=== PATIENT | female | born 1990 | race Caucasian/White ===

== ENCOUNTER 2020-01-18 13:28 | Emergency (ER) | payer BC ==
[~2020-01-18] VITALS: Ht 175.3 cm; Wt 127.0 kg
--- OUTSIDE RECORDS SUMMARY | ~2020-01-18 | XMS | Encounter Summary ---
Demographics + + + | Address | [address] | | | [place] [address] | + + + | Home Phone | | + + + | Preferred Language | Unknown | + + + | Marital Status | | + + + | Sabianism Affiliation | Unknown | + + + | Race | White | + + + | Ethnic Group | Not or | + + + Author + + + | Author | [facility] | + + + | Organization | [facility] | + + + | Address | Unknown | + + + | Phone | Unavailable | + + + Support + + +---------+ + | Name | Relationship | Address | Phone | + + +---------+ + | Valentin Lu | ECON | Unknown | | + + +---------+ + Care Team Providers + +------+ + | Care Ice Cream Freezer Helper Name | Role | Phone | + +------+ + | Nanda Schaeffer | PCP | | + +------+ + Reason for Visit + +--------+ + | Reason | Onset | Comments | | | Date | | + +--------+ + | Care Coordination | 01/07/ | | | | 2019 | | + +--------+ + Encounter Details +--------+ + + + + | Date | Type | Department | Care Team | Description | +--------+ + + + + | 01/07/ | Telephone | [facility] | Shruti Wheeler, | Care Coordination | | 2019 | | [facility] | [address] [facility] | | | | | [address] | [facility] | | | | | [address] | [place], [place] | | | | | Pavilion, [facility] floor | [address] | | | | | [place], [place] | [phone] | | | | | [address] | | | | | | [phone] | | | +--------+ + + + + Social History + +-------+ +--------+------+ | Tobacco Use | Types | Packs/Day | Years | Date | | | | | Used | | + +-------+ +--------+------+ | Never Smoker | | | | | + +-------+ +--------+------+ + +---+---+---+ | Smokeless Tobacco: | | | | | Never Used | | | | + +---+---+---+ + + +---------+ + | Alcohol Use | Drinks/Week | oz/Week | Comments | + + +---------+ + | Yes | | | 2/monthly | + + +---------+ + + + + | Sex Assigned at | Date Recorded | | | | + + + | Not on file | | + + + documented as of this encounter Miscellaneous Notes Telephone Encounter - Shruti Wheeler MD - 01/07/2019 2:18 PM PDTI already did that.. no further recommendations needed. Thanks! Shruti Wheeler MD elephone Encounter - Becky Raya RN - 01/07/2019 2:[address] Wheeler elephone Encounter - Jong Bray - 2018 1:43 PM PDTTC rec'd from [facility] at [facility] re: Dr. Wheeler's note in the Consult to [place] stati hoa, "Special Concerns for [facility] provider: Addisons disease, need steroid recommendations." Ra coughlin states that [facility] providers are not able to give these recommendations and that [facility] clini maddy staff will need to reach out to the pt's endocrinology provider for steroid dosing. Routing to Coffee Shop Attendant Triage pool. 19 1:46 PM PDTdocumented in this encounter Plan of Treatment +--------+ + + + + | Date | Type | Specialty | Care Team | Description | +--------+ + + + + | 01/15/ | Procedure | Surgery | | | | 2020 | Pass | | | | +--------+ + + + + documented as of this encounter Visit Diagnoses Not on filedocumented in this encounter
--- OUTSIDE RECORDS SUMMARY | ~2020-01-18 | XMS | Encounter Summary ---
Demographics + + + | Address | [address] | | | [place] [address] | + + + | Home Phone | | + + + | Preferred Language | Unknown | + + + | Marital Status | | + + + | Yarsanism Affiliation | Unknown | + + + | Race | White | + + + | Ethnic Group | Not or | + + + Author + + + | Author | [facility] | + + + | Organization | [facility] | + + + | Address | Unknown | + + + | Phone | Unavailable | + + + Support + + +---------+ + | Name | Relationship | Address | Phone | + + +---------+ + | Valentin Lu | ECON | Unknown | | + + +---------+ + Care Team Providers + +------+ + | Care Civil Transportation Engineer Name | Role | Phone | + +------+ + | Nanda Schaeffer | PCP | | + +------+ + Reason for Visit + +--------+ + | Reason | Onset | Comments | | | Date | | + +--------+ + | Need To Cancel | 01/09/ | Cancel surgery | | Appointment | 2019 | | + +--------+ + Encounter Details +--------+ + + + + | Date | Type | Department | Care Team | Description | +--------+ + + + + | 01/09/ | Telephone | [facility] | Shruti Wheeler, | Need To Cancel | | 2019 | | [facility] | [address] | Appointment (Cancel | | | | [address] | [facility] [address] | surgery) | | | | [address] | [place], [place] | | | | | Pavilion, 7th floor | [address] | | | | | [place], [place] | [phone] | | | | | [address] | | | | | | [phone] | | | +--------+ + + + [...] this encounter Miscellaneous Notes Telephone Encounter - Laura Roberson RN - 01/09/2019 3:23 PM PDTPhone call to patient. Relayed Dr. Wheeler's message. Patient verbalizes understanding and has not further questions . RN closing. eleph one Encounter - Shruti Wheeler MD - 01/09/2019 2:50 PM PDTPlease tell her I'm sorry to he ar about her job. I hope she is able to find another one. No worries about cancelling her rios rgery, just have her call when/if she is ready to reschedule. Shruti Wheeler MD elephone Encounter - Jong Bray - 01/09/2019 9:35 AM PDT01/15 surgery cancelled as pt requested. Routing to Dr. Wheeler as FYI. 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 She does not know what is going to happen and would li ke to cancel her procedure. She will call back to reschedule once she knows what's going on. documented in this encounter Plan of Treatment +--------+ + + + + | Date | Type | Specialty | Care Team | Description | +--------+ + + + + | 01/15/ | Procedure | Surgery | | | | 2020 | Pass | | | | +--------+ + + + + documented as of this encounter Visit Diagnoses Not on filedocumented in this encounter"
--- OUTSIDE RECORDS SUMMARY | ~2020-01-18 | XMS | Encounter Summary ---
Demographics + + + | Address | [address] | | | [place] [address] | + + + | Home Phone | | + + + | Preferred Language | Unknown | + + + | Marital Status | | + + + | Taoism Affiliation | Unknown | + + + | Race | White | + + + | Ethnic Group | Not or | + + + Author + + + | Organization | Unknown | + + + | Address | Unknown | + + + | Phone | Unavailable | + + + Support + + +---------+ + | Name | Relationship | Address | Phone | + + +---------+ + | Valentin Lu | OZZY | Unknown | | + + +---------+ + Care Team Providers + +------+ + | Care News Cameraman Name | Role | Phone | + +------+ + | Nanda Schaeffer | PCP | | + +------+ + Encounter Details +--------+--------+ + + + | Date | Type | Department | Care Team | Description | +--------+--------+ + + + | // | Travel | | | | | 2019 | | | | | +--------+--------+ + + + Social History + +-------+ [...] + + documented as of this encounter Plan of Treatment +--------+ + [...]
--- OUTSIDE RECORDS SUMMARY | ~2020-01-18 | XMS | Clinical Summary ---
Demographics + + + | Address | [address] | | | [place] [address] | + + + | Home Phone | | + + + | Preferred Language | Unknown | + + + | Marital Status | | + + + | Zoroastrian Affiliation | Unknown | + + + | Race | White | + + + | Ethnic Group | Not or | + + + Author + + + | Author | [facility] | + + + | Organization | [facility] | + + + | Address | Unknown | + + + | Phone | Unavailable | + + + Support + + +---------+ + | Name | Relationship | Address | Phone | + + +---------+ + | Valentin Lu | ECON | Unknown | | + + +---------+ + Care Team Providers + +------+ + | Care Final Assembly Worker Name | Role | Phone | + +------+ + | Nanda Schaeffer | PCP | | + +------+ + Source Comments SANGITA is fully live on both [facility] and [facility] InPatient.[facility] Allergies + + + + + + | Active Allergy | Reactions | Severity | Noted | Comments | | | | | Date | | + + + + + + | Azithromycin | Nausea and Vomiting | Low | 10/16/19 | Sensitiy | | | | | 19 | | + + + + + + | Codeine | Rash | Medium | 10/16/19 | Hives | | | | | 19 | | + + + + + + Medications + + + +---------+------+------+-------+ | Medication | Sig | Dispensed | Refills | Star | End | Statu | | | | | | t | Date | s | | | | | | Date | | | + + + +---------+------+------+-------+ | levothyroxine | Take 200 mg by mouth | | 0 | | | Activ | | sodium | once daily. | | | | | e | | (LEVOTHYROXINE ORAL) | | | | | | | + + + +---------+------+------+-------+ | VIENVA 0.1-20 | Take by mouth once | | 12 | 06/0 | | Activ | | mg-mcg oral tablet | daily. | | | 20 | | e | | | | | | 19 | | | + + + +---------+------+------+-------+ | naproxen 375 mg | Take 375 mg by mouth | | 0 | | | Activ | | oral tablet | as needed. | | | | | e | + + + +---------+------+------+-------+ | acetaminophen | Take by mouth as | | 0 | | | Activ | | (TYLENOL ORAL) | needed. | | | | | e | + + + +---------+------+------+-------+ | | Place under tongue. | | 0 | 06/0 | | Activ | | buprenorphine-naloxo | | | | 6/20 | | e | | ne 8-2 mg sublingual | | | | 19 | | | | tablet, sublingual | | | | | | | + + + +---------+------+------+-------+ | cetirizine 10 mg | Take 10 mg by mouth | | 0 | | | Activ | | oral tablet | once daily. | | | | | e | + + + +---------+------+------+-------+ | baclofen 10 mg | Take 10 mg by mouth | | 0 | | | Activ | | oral tablet | three times daily. | | | | | e | + + + +---------+------+------+-------+ | diazePAM 5 mg oral | Take 5 mg by mouth | | 0 | | | Activ | | tablet | once daily. | | | | | e | + + + +---------+------+------+-------+ | ALBUTEROL INHL | Inhale once daily. | | 0 | | | Activ | | | | | | | | e | + + + +---------+------+------+-------+ | FLUoxetine 10 mg | Take 10 mg by mouth | | 0 | | | Activ | | oral capsule | once daily. | | | | | e | + + + +---------+------+------+-------+ | prazosin 1 mg oral | Take 1 mg by mouth | | 0 | | | Activ | | capsule | once daily. | | | | | e | + + + +---------+------+------+-------+ | fluticasone | Instill 2 sprays | | 0 | | | Activ | | propionate 50 | into each nostril as | | | | | e | | mcg/actuation nasal | needed for allergy | | | | | | | spray,suspension | symptoms. | | | | | | + + + +---------+------+------+-------+ | | Apply to affected | | 0 | | | Activ | | clotrimazole-betamet | area as needed. | | | | | e | | hasone 1-0.05 % | Apply to affected | | | | | | | topical cream | area. | | | | | | + + + +---------+------+------+-------+ | ondansetron 4 mg | Take 4 mg by mouth | | 0 | | | Activ | | oral tablet | every twelve hours | | | | | e | | | as needed. | | | | | | + + + +---------+------+------+-------+ | lidocaine 5 % | Apply 1 patch to | | 0 | | | Activ | | topical adhesive | skin once daily. | | | | | e | | patch,medicated | Apply patch to most | | | | | | | | painful area; Patch | | | | | | | | may remain in place | | | | | | | | for up to 12 hours | | | | | | | | in any 24-hour | | | | | | | | period. | | | | | | + + + +---------+------+------+-------+ | hydrocortisone 5 | Take 5 mg by mouth | | 0 | | | Activ | | mg oral tablet | once daily. | | | | | e | + + + +---------+------+------+-------+ | lidocaine 4 % (40 | Apply with cotton | 50 mL | 3 | 08/2 | | Activ | | mg/mL) mucous | ball to the vaginal | | | 9/20 | | e | | membrane solution | opening 3-5 minutes | | | 19 | | | | | prior to intercourse | | | | | | + + + +---------+------+------+-------+ | norethindrone 5 mg | 1 tablet daily for | 50 | 2 | 09/0 | | Activ | | oral tablet | 14 days; if still | tablet | | 4/20 | | e | | | having pain, | | | 19 | | | | | increase at | | | | | | | | increments of 2.5 | | | | | | | | mg/day every 2 weeks | | | | | | | | to reach a maximum | | | | | | | | dose of 15 mg/day | | | | | | + + + +---------+------+------+-------+ Active Problems Not on file Family History + + +------+ + | Medical History | Relation | Name | Comments | + + +------+ + | Colon Cancer | Maternal | | | | | Grandfath | | | | | er | | | + + +------+ + | Breast Cancer | Maternal | | | | | Grandmoth | | | | | er | | | + + +------+ + | Thyroid cancer | Mother | | | + + +------+ + | Cancer | Sister | | parathyroid ca | + + +------+ + | Endometriosis | Sister | | | + + +------+ + | Endometriosis | Sister | | | + + +------+ + + +------+--------+ + | Relation | Name | Status | Comments | + +------+--------+ + | Maternal Grandfather | | | | + +------+--------+ + | Maternal Grandmother | | | | + +------+--------+ + | Mother | | | | + +------+--------+ + | Sister | | | | + +------+--------+ + | Sister | | | | + +------+--------+ + | Sister | | | | + +------+--------+ + Social History + +-------+ +--------+------+ | [...] on file | | + + + Last Filed Vital Signs + + + + + | Vital Sign | Reading | Time Taken | Comments | + + + + + | Blood Pressure | 130/80 | 11/21/2018 1:09 PM | | | | | PDT | | + + + + + | Pulse | 89 | 11/21/2018 1:09 PM | | | | | PDT | | + + + + + | Temperature | - | - | | + + + + + | Respiratory Rate | - | - | | + + + + + | Oxygen Saturation | 98% | 11/21/2018 1:09 PM | | | | | PDT | | + + + + + | Inhaled Oxygen | - | - | | | Concentration | | | | + + + + + | Weight | 144.1 kg (317 lb 9.6 | 11/21/2018 1:09 PM | | | | oz) | PDT | | + + + + + | Height | 175.3 cm (5' 9") | 11/21/2018 1:09 PM | | | | | PDT | | + + + + + | Body Mass Index | 46.9 | 11/21/2018 1:09 PM | | | | | PDT | | + + + + + Plan of Treatment +--------+ + + + + | Date | Type | Specialty | Care Team | Description | +--------+ + + + + | 01/15/ | Procedure | Surgery | | | | 2020 | Pass | | | | +--------+ + + + + + + + + + | Health Maintenance | Due Date | Last | Comments | | | | Done | | + + + + + | Influenza (Flu) | | 11/13/19 | | | vaccination (#1) | 0 | 19, | | | | | 11/27/19 | | | | | 18, | | | | | 11/04/19 | | | | | 17, | | | | | Addition | | | | | al | | | | | history | | | | | exists | | + + + + + | Pneumococcal | Aged Out | | No longer eligible based on patient's age | | vaccination | | | to complete this topic | + + + + + Results Not on filefrom Last 3 Months Insurance + +--------+ +--------+ + +------+ | Payer | Benefi | Subscriber | Effect | Phone | Address | Type | | | t Plan | ID | daniel | | | | | | / | | Dates | | | | | | Group | | | | | | + +--------+ +--------+ + +------+ | [employer] [place] | BCBS | [id number] | 03/26/19 | [phone] | [address] | PPO | | | [place] | 5 | 18-Pre | 4 | [place] | | | | IS | | sent | | [place], [place] | | | | | | | | [id number] | | + +--------+ +--------+ + +------+ | [place] | BLUE | [id number] | | [phone] | [address] | PPO | | | CROSS | | [address] | [id number] | | | | [place] | | esent | | [place], | | | | L | | | | [place] [address] | | + +--------+ +--------+ + +------+ + +--------+ +--------+ + + | Guarantor Name | Accoun | Relation to | Date | Phone | Billing Address | | | t Type | Patient | of | | | | | | | | | | + +--------+ +--------+ + + | Kalie Lu | Person | Self [birth year] | [address] | | | al/Fam | | 1990 | [phone] | [place] [address] | | | delores | | | 8 (Home) | | + +--------+ +--------+ + +
--- OUTSIDE RECORDS SUMMARY | ~2020-01-18 | XMS | Encounter Summary ---
Demographics + + + | Address | [address] | | | [place] [address] | + + + | Home Phone | | + + + | Preferred Language | Unknown | + + + | Marital Status | | + + + | Pentecostal Affiliation | Unknown | + + + | Race | White | + + + | Ethnic Group | Not or | + + + Author + + + | Author | [facility] | + + + | Organization | [facility] | + + + | Address | Unknown | + + + | Phone | Unavailable | + + + Support + + +---------+ + | Name | Relationship | Address | Phone | + + +---------+ + | Valentin Lu | ECON | Unknown | | + + +---------+ + Care Team Providers + +------+ + | Care Sponge Hooker Name | Role | Phone | + +------+ + | Nanda Schaeffer | PCP | | + +------+ + Encounter Details +--------+ + + + + | Date | Type | Department | Care Team | Description | +--------+ + + + + | 06/19/ | Outside | UNKNOWN DEPARTMENT | Other, Faculty | | | 2019 | Records | [address] [facility] | [phone] | | | | | [address] | | | | | | [place], [place] | | | | | | [address] | | | +--------+ + + + + Social History + +-------+ +--------+------+ | Tobacco Use | Types | Packs/Day | Years | Date | | | | | Used | | + +-------+ +--------+------+ | Never Assessed | | | | | + +-------+ +--------+------+ + + + | Sex Assigned at [...] + + documented as of this encounter Procedures + +--------+ + + + | Procedure Name | Priori | Date/Time | Associated Diagnosis | Comments | | | ty | | | | + +--------+ + + + | OUTSIDE RADIOLOGY - | | 06/19/2018 | | Results for this | | ULTRASOUND | | 12:00 AM | | procedure are in the | | | | PDT | | results section. | + +--------+ + + + documented in this encounter Results OUTSIDE RADIOLOGY - ULTRASOUND (06/19/2018 12:00 AM PDT) + + + | Narrative | Performed At | + + + | | | + + + documented in this encounter Visit Diagnoses Not on filedocumented in this encounter"
--- OUTSIDE RECORDS SUMMARY | ~2020-01-18 | XMS | Encounter Summary ---
Demographics + + + | Address | [address] | | | [place] [address] | + + + | Home Phone | | + + + | Preferred Language | Unknown | + + + | Marital Status | | + + + | Samaritan Affiliation | Unknown | + + + | Race | White | + + + | Ethnic Group | Not or | + + + Author + + + | Author | [facility] | + + + | Organization | [facility] | + + + | Address | Unknown | + + + | Phone | Unavailable | + + + Support + + +---------+ + | Name | Relationship | Address | Phone | + + +---------+ + | Valentin Lu | ECON | Unknown | | + + +---------+ + Care Team Providers + +------+ + | Care Occupational Therapist Name | Role | Phone | + +------+ + | Nanda Schaeffer | PCP | | + +------+ + Reason for Visit + +--------+ + | Reason | Onset | Comments | | | Date | | + +--------+ + | housing accomodation | 12/23/ | | | | 2018 | | + +--------+ + Encounter Details +--------+ + + + + | Date | Type | Department | Care Team | Description | +--------+ + + + + | 12/23/ | Telephone | SOCIAL WORK | Kailee Hagen | housing accomodation | | 2019 | | AMBULATORY [address] | | | | | [address] | [place], | | | | | Mailcode: CH6A | [place] [address] | | | | | [place], [place] | | | | | | [address] | | | | | | [phone] | | | +--------+ + + + [...] this encounter Miscellaneous Notes Telephone Encounter - Kailee Hagen - 12/26/2018 1:36 PM PDTCalled and spoke with patient. Patient declined a screening at this time as she is not sure if she will have to reschedule the surgery to a later date. Patient states she will call this off once she is ready to com plete an RPV screening. elep jose Encounter - Kailee Hagen - 12/23/2018 4:50 PM PDTCalled and left a voicemail message to patient introducing myself and requesting a return call to complete an RPV guest house lo dging for 01/14-01/15/2019. Patient will not be able to discharge to [facility] after the day proce dure. Kailee Hagen, Supervisor Of Communications [phone] [employer] Drafter pager [phone] documented in this encounte r Plan of Treatment +--------+ + + + [...]
--- OUTSIDE RECORDS SUMMARY | ~2020-01-18 | XMS | Encounter Summary ---
Demographics + + + | Address | [address] | | | [place] [address] | + + + | Home Phone | | + + + | Preferred Language | Unknown | + + + | Marital Status | | + + + | Adventism Affiliation | Unknown | + + + | Race | White | + + + | Ethnic Group | Not or | + + + Author + + + | Author | [facility] | + + + | Organization | [facility] | + + + | Address | Unknown | + + + | Phone | Unavailable | + + + Support + + +---------+ + | Name | Relationship | Address | Phone | + + +---------+ + | Valentin Lu | ECON | Unknown | | + + +---------+ + Care Team Providers + +------+ + | Care Ip Network Architect Name | Role | Phone | + +------+ + | Nanda Schaeffer | PCP | | + +------+ + Encounter Details +--------+ + + + + | Date | Type | Department | Care Team | Description | +--------+ + + + + | 08/28/ | Outside | UNKNOWN DEPARTMENT | Other, Faculty | | | 2019 | Records | [address] [facility] | [phone] | | | | | [address] | | | | | | [place], [place] | | | | | | [address] | | | +--------+ + + + [...] + +--------+ + + + | OUTSIDE LAB - | | 08/28/2018 | | Results for this | | PATHOLOGY | | 12:00 AM | | procedure are in the | | | | PDT | | results section. | + +--------+ + + + | OUTSIDE LAB - | | 08/28/2018 | | Results for this | | PATHOLOGY | | 12:00 AM | | procedure are in the | | | | PDT | | results section. | + +--------+ + + + documented in this encounter Results OUTSIDE LAB - PATHOLOGY (08/28/2018 12:00 AM PDT) + + + | Narrative | Performed At | + + + | | | + + + OUTSIDE LAB - PATHOLOGY (08/28/2018 12:00 AM PDT) + + + | Narrative | Performed At | + + + | | | + + + documented in this encounter Visit Diagnoses Not on filedocumented in this encounter"
--- OUTSIDE RECORDS SUMMARY | ~2020-01-18 | XMS | Encounter Summary ---
Demographics + + + | Address | [address] | | | [place] [address] | + + + | Home Phone | | + + + | Preferred Language | Unknown | + + + | Marital Status | | + + + | Yazidism Affiliation | Unknown | + + + | Race | White | + + + | Ethnic Group | Not or | + + + Author + + + | Author | [facility] | + + + | Organization | [facility] | + + + | Address | Unknown | + + + | Phone | Unavailable | + + + Support + + +---------+ + | Name | Relationship | Address | Phone | + + +---------+ + | Vlaentin Lu | ECON | Unknown | | + + +---------+ + Care Team Providers + +------+ + | Care Water Treatment Plant Engineer Name | Role | Phone | + +------+ + | Nanda Schaeffer | PCP | | + +------+ + Reason for Visit + +--------+ + | Reason | Onset | Comments | | | Date | | + +--------+ + | Questions About | 12/17/ | | | Surgery | 2019 | | + +--------+ + Encounter Details +--------+ + + + + | Date | Type | Department | Care Team | Description | +--------+ + + + + | 12/17/ | Telephone | [facility] | Shruti Wheeler, | Questions About | | 2019 | | [facility] | [address] | Surgery | | | | Pav[address] | [facility] | | | | | [address] | [place], [place] | | | | | Pavilion, 7th floor | [address] | | | | | [place], [place] | [phone] | | | | | [address] | | | | | | [phone] | | | +--------+ + + + [...] this encounter Miscellaneous Notes Telephone Encounter - Gisselle Uriarte RN - 12/17/2018 11:05 AM PDTTC to Kalie Informed her that recovery would typically take 1-2 weeks. Pt will send over paperwork to reflect time needed off of work. 11: 06 AM PDTTelephone Encounter - Barbie Evans - 12/17/2018 10:53 AM PDTTC from patient isabella victoria to find out how long the expected recovery for surgery is so that she can let her work know how much time she will need off. Patient requests a call back at: [phone].Electronically signed by Barbie Evans at 11/25 10:55 AM PDTdocumented in this encounter Plan of Treatment [...]
--- OUTSIDE RECORDS SUMMARY | ~2020-01-18 | XMS | Encounter Summary ---
Demographics + + + | Address | [address] | | | [place] [address] | + + + | Home Phone | | + + + | Preferred Language | Unknown | + + + | Marital Status | | + + + | Yazdanism Affiliation | Unknown | + + + | Race | White | + + + | Ethnic Group | Not or | + + + Author + + + | Author | [facility] | + + + | Organization | [facility] | + + + | Address | Unknown | + + + | Phone | Unavailable | + + + Support + + +---------+ + | Name | Relationship | Address | Phone | + + +---------+ + | Valentin Lu | ECON | Unknown | | + + +---------+ + Care Team Providers + +------+ + | Care Personal Injury Specialist Name | Role | Phone | + +------+ + | Nanda Schaeffer | PCP | | + +------+ + Encounter Details +--------+ + + + + | Date | Type | Department | Care Team | Description | +--------+ + + + + | 06/14/ | Outside | UNKNOWN DEPARTMENT | Other, Faculty | | | 2016 | Records | [address] [facility] | [phone] | | | | | [address] | | | | | | [place], [place] | | | | | | [address] | | | +--------+ + + + [...] + | OUTSIDE LAB - | | 06/15/2015 | | Results for this | | PATHOLOGY | | 12:00 AM | | procedure are in the | | | | PDT | | results section. | + +--------+ + + + documented in this encounter Results OUTSIDE LAB - PATHOLOGY (06/15/2015 12:00 AM PDT) + + + | Narrative | Performed At | + + + | | | + + + documented in this encounter Visit Diagnoses Not on filedocumented in this encounter"
--- OUTSIDE RECORDS SUMMARY | ~2020-01-18 | XMS | Encounter Summary ---
Demographics + + + | Address | [address] | | | [place] [address] | + + + | Home Phone | | + + + | Preferred Language | Unknown | + + + | Marital Status | | + + + | Druze Affiliation | Unknown | + + + [...] Team Providers + +------+ + | Care Assistant Foreman Name | Role | Phone | + +------+ + | Nanda Schaeffer | PCP | | + +------+ + Reason for Referral Physical Therapy (Routine) +--------+--------+ + + + + | Status | Reason | Specialty | Diagnoses / | Referred By | Referred To | | | | | Procedures | Contact | Contact | +--------+--------+ + + + + | Closed | | Physical | Diagnoses | Summer, | | | | | Therapy | Pelvic pain | Shruti Underwood MD | | | | | | Procedures | [address] | | | | | | PHYSICAL | [address] | | | | | | THERAPY | [address] | | | | | | REFERRAL | [place], [place] | | | | | | | [address] | | | | | | | Phone: | | | | | | | [phone] | | | | | | | Fax: | | | | | | | [phone] | | +--------+--------+ + + + + Rehabilitation Therapy (Routine) +--------+--------+ + + + + | Status | Reason | Specialty | Diagnoses / | Referred By | Referred To | | | | | Procedures | Contact | Contact | +--------+--------+ + + + + | Closed | | March | Diagnoses | Summer, | May | | | | Wellness | Pelvic pain | Shruti Underwood MD | Wellness | | | | | Procedures | [address] | [address] | | | | | CONSULT TO | [address] | [address] | | | | | [address] | [address] | [place], [place] | | | | | EXERCISE | [place], [place] | [address] | | | | | PROGRAM | [address] | Phone: | | | | | | Phone: | [phone] | | | | | | [phone] | | | | | | | Fax: | | | | | | | [phone] | | +--------+--------+ + + + + Reason for Visit + + + | Reason | Comments | + + + | New Patient Visit | | + + + Intake Referral (Routine) +--------+--------+ + + + + | Status | Reason | Specialty | Diagnoses / | Referred By | Referred To | | | | | Procedures | Contact | Contact | +--------+--------+ + + + + | Closed | | Obstetrics & | Diagnoses | [facility] | Kimberly | | | | Gynecology | | Roman Castro, | Generalists | | | | | Endometriosi | MD ST | [address] | | | | | s, | MACI[facility] | [facility] | | | | | unspecified | H[facility]ITAL | [place] | | | | | | OBSTETRICS | [address] | | | | | Endometriosi | AND | floor | | | | | s of pelvic | GYNECOLOGY | [place], [place] | | | | | peritoneum | [place], | [address] | | | | | Endometriosi | [place] [address] | Phone: | | | | | s of ovary | Phone: | [phone] | | | | | Procedures | [phone] | Fax: | | | | | ME NEW | Fax: | [phone] | | | | | PATIENT | [phone] | | | | | | LEVEL V ME | | | | | | | EST PATIENT | | | | | | | LEVEL V | | | +--------+--------+ + + + + Encounter Details +--------+---------+ + + + | Date | Type | Department | Care Team | Description | +--------+---------+ + + + | 11/21/ | Office | [facility] | Shruti Wheeler, | Pelvic pain (Primary | | 2019 | Visit | [facility] | [address] | Dx); Dyspareunia | | | | [address] | [address] | due to medical | | | | [address] | [place], [place] | condition in female | | | | Pavilion, 7th floor | [address] | | | | | [place], [place] | [phone] | | | | | [address] | | | | | | [phone] | | | +--------+---------+ + + + Social History + +-------+ [...] + + documented as of this encounter Last Filed Vital Signs + + + [...] | | + + + + + documented in this encounter Patient Instructions Patient Instructions Shruti Wheeler MD - 11/21/2018 1:00 PM PDTIt was nice to meet you t davian! I'm sorry you've been having pain but hopefully we can get it better with the things w e talked about at today's visit! -Use heat and ice for 20 minutes at a time, alternating several times each evening -Use ibuprofen 600mg (3 over the counter tablets) 3-4 times per day - Schedule massage therapy (look for someone in your area that does Rolfing, myofascial rel ease or Mayan abdominal wall massage) - Schedule pelvic floor physical therapy - Use the lidocaine with a cotton ball prior to intercourse documented in this encounter Progress Notes Shruti Wheeler MD - 11/21/2018 1:00 PM PDTOutside op note received, reviewed: DOS: 10/21/17 Surgeon: Roman Acuna MD ([facility]) Procedure: Dx l/s Findings: Normal uterine size and shape. Anterior cul-de-sac with several small endometrial implants on the right. No adhesions. Posterior cul-de-sac with several peritoneal implants bilaterally. Just above the right uterosacral ligament, there was a fairly large Ke Maste rs defect with probable deep endometriosis. Bilateral pelvic sidewalls had endometrial impla nts underneath the ovaries. Left tube normal. Left ovary with two red endometrial implants b ut no obvious cysts or endometriomas. The right tube was normal. The right ovary showed no e vidence of endometriosis or cysts. Normal appendix. Rest of pelvis normal. Due to the extensive nature of involved peritoneum, the procedure was stopped. Relevant results: 06/19/18 TVUS: AV uterus measures 7.2 x 2.7 x 4.4cm with homogeneous echotexture. No lesions . EML 2mm. Normal ovaries. 10/16/17: Hgb 14 A/P: She will be notified of the unaddressed disease. This MAY OR MAY NOT be the source of her g roin pain but it is reasonable to offer her l/s excision of endometriosis in addition to the other tx previously discussed to see if this combination of therapies help with her pain. Shruti Wheeler MD [facility] AT [address] [address] Kandy Champion MA - 0 11/21/2018 1:00 PM PDTROI faxed to [facility] in [place], [place] for 2018 opt note/patholog y, recent PHOTOGRAPHY SALES ASSOCIATE visit notes and any imaging. Original sent to scanning. Mariella Li ronically signed by Kandy Dodd MA at 11/27/2018 9:04 AM Bishnu Sims H - 11/21/2018 1:00 PM PDT GYNECOLOGY HISTORY AND PHYSICAL Referring Provider: Roman Acuna MD Kalie Lu is a 27 y.o. G0 with a history of ovarian cysts, Addisons disease, hyp othyroidism, depression, PTSD, and chronic back pain here for concerns about endometriosis. HPI: Kalie has had chronic right groin pain x6 yrs (she reports 6 years, prior visit not es from other providers report that this started in 2017 so slightly confusing time duration ). Describes as a dull "aching" pain located in the R groin. Generally localized to the R gr oin but sometimes has some radiation to the lower back and LLQ. Present on a daily basis, un related to menses. The pain is exacerbated by sitting - becomes stabbing pain with prolonged sitting. The pain became much worse ~4 years ago. Improved with laying down, use of other p ain meds for chronic back pain. No benefit with NSAIDs or OCPs. Menses began at 14yo and were regular, lasting 5-7 days. However, when the groin pain start ed, her periods became heavy, painful and irregular. She was tried on numerous different OCP s to control her sx. Her periods then stopped spontaneously and she didn't bleed x2 years. W hile amenorrheic, she continued to have right groin pain that occasionally radiated to the b ack and left groin. She was put on Lupron x9 Months (3 doses), which provided >50% relief o f her pain. Experienced bothersome side effects (despite addback tx) so was taken off of Lup tawana and transitioned to continuous OCPs, which have not helped her pain. During her 2018 l/s for her right ovarian cyst, the surgeon noted extensive endometriosis of ovaries and pelvic peritoneum (no op note available for my review). She wonders if endometriosis could be a ca use of her current sx. +Dyspareunia with insertion and deep penetration. The only position that is somewhat better is "doggy-style". They use lubricant during intercourse. Generally has 4-5 BMs/day of tooth paste consistency since her fredrick. Denies constipation, dyschezia, or dysuria. Does report h /o dysmenorrhea. Does have a history of cervical polyps removed in the office. Does desperat joyce desire fertility but concerned about her multiple health issues and . She has chronic back pain due to scoliosis and several herniated discs. For this, uses Subo xone, naproxen, tylenol, and lidocaine patches, which also mildly helps her pelvic/groin genesis n. She feels that it is sometimes hard to differentiate the chronic back pain from her pelvi c pain. She was previously recommended genetics c/s due to family history of multiple cancers. Has not had this yet. Current pain meds: Suboxone 8-2mg tabs (0.5tab sublingual) TID, naprosyn 550mg 1.5 tabs BID prn Addisons dz: hydrocortisone 5mg 2-4 tabs tid prn Other relevant meds: synthroid 200mcg, fluoxetine 60mg qHs Relevant imagin06/19/18 TVUS - Uterus measures 7.2 x 2.7 x 4.4cm with homogeneous echotexture. No focal les ions. EML 2mm. Normal bilateral ovaries. GYNECOLOGIC HISTORY: Patient's last menstrual period was 09/14/2018. Menarche: 14 years old. Menses: Irregular and painful Sexual Activity: Patient is sexually active with spouse. She has not had a new sexual part ner in the last year. Contraception: continuous oral contraceptive pills. Pap Smear History: Date of last pap smear was 09/04/18 - cytology neg, no HPV performed. Ne gative history of abnormal pap smears. Sexually Transmitted Infections: No history. Past Medical History: Diagnosis Date Casper disease (HCC) Chronic back pain Depression Endometriosis Hypothyroid Migraine with aura PTSD (post-traumatic stress disorder) Scoliosis Past Surgical History Procedure Laterality Date Laparoscopy 2017 Removal of R ovarian cysts > was told that there was endometriosis Cholecystectomy 2016 l/s fredrick Tonsillectomy and adenoidectomy Family History Problem Relation Cancer Sister parathyroid ca Endometriosis Sister Endometriosis Sister SOCIAL HISTORY: Social History Tobacco Use Smoking status: Never Smoker Smokeless tobacco: Never Used Substance Use Topics Alcohol use: Yes Comment: 2/monthly Drug use: Yes Comment: [facility] for occ migraine MEDICATIONS: Current Outpatient Medications Medication Sig acetaminophen (TYLENOL ORAL) Take by mouth as needed. ALBUTEROL INHL Inhale once daily. baclofen 10 mg oral tablet Take 10 mg by mouth three times daily. buprenorphine-naloxone 8-2 mg sublingual tablet, sublingual Place under tongue. cetirizine 10 mg oral tablet Take 10 mg by mouth once daily. clotrimazole-betamethasone 1-0.05 % topical cream Apply to affected area as needed. Jaky ly to affected area. diazePAM 5 mg oral tablet Take 5 mg by mouth once daily. FLUoxetine 10 mg oral capsule Take 10 mg by mouth once daily. fluticasone propionate 50 mcg/actuation nasal spray,suspension Instill 2 sprays into ea ch nostril as needed for allergy symptoms. hydrocortisone 5 mg oral tablet Take 5 mg by mouth once daily. levothyroxine sodium (LEVOTHYROXINE ORAL) Take 200 mg by mouth once daily. lidocaine 4 % (40 mg/mL) mucous membrane solution Apply with cotton ball to the vaginal opening 3-5 minutes prior to intercourse lidocaine 5 % topical adhesive patch,medicated Apply 1 patch to skin once daily. Apply patch to most painful area; Patch may remain in place for up to 12 hours in any 24-hour alex od. naproxen 375 mg oral tablet Take 375 mg by mouth as needed. ondansetron 4 mg oral tablet Take 4 mg by mouth every twelve hours as needed. prazosin 1 mg oral capsule Take 1 mg by mouth once daily. VIENVA 0.1-20 mg-mcg oral tablet Take by mouth once daily. ALLERGIES: Codeine and Azithromycin PHYSICAL EXAM: BP 130/80 | Pulse 89 | Ht 1.753 m (5' 9") | Wt 144.1 kg (317 lb 9.6 oz) | SpO2 98% | B RI 46.90 kg/m | BSA 2.65 m General: This is a well appearing female in mild distress and tearful at times. Neurological: Grossly intact. CV: Regular rate Resp: Unlabored respirations Abdomen/GI: Soft. Obese. No masses. No inguinal lymphadenopathy. TTP over RLQ, worsens w/ head raise. No rebound or guarding. Back: Diffuse R sided back pain to even light palpation. This extends up to the scapula and inferior to the iliac crest. Mild TTP over L iliac crest as well. MSK: No pain w/ passive hip rotation bilaterally. Straight leg to resistance reproduces tia e groin and lower back pain on the R. Pelvic exam: External Genitalia: Normal contour. No lesions. Rashes or fissures. +Q-tip test 5-12 o'gem ck, no erythema > 100% ablated w/ Aq lidocaine. Urethral Meatus: Normal in appearance. Vagina: Well estrogenized. Well rugated. No lesions. Cervix: Normal cervix without lesions, polyps or tenderness. No tenderness over posterior cul-de-sac. No nodularity or tethering of the USLs. Uterus: Unable to tell position w/ habitus. Appears to be normal size and contour. Mobile. No masses or tenderness. Adnexa/Parametria: Exam limited by habitus but no apparent masses. Non-tender. No parametr ial thickening. Anus and Perineum: No lesions. Other Exam Findings: Pelvic floor muscles with L levator spasm. ASSESSMENT/PLAN: This is a 27 y.o. G0 with chronic groin pain. We reviewed various etiologi es for pelvic/groin pain including PHOTOGRAPHY SALES ASSOCIATE, MSK, , GI, and neuropathic. 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 She has endometriosis as documented in her prior surgery but the fact that her pain has persisted despite amenorr hea and Lupron use argues against a significant component of her daily pain being due to end ometriosis. Endometriosis may have contributed to her prior dysmenorrhea complaints. I couns eled the patient regarding the unknown natural history of endometriosis. Endometriosis relat ed pain generally improves in and MSK pain generally worsens in . We revi ewed that endometriosis can impair fertility but is not a guarantee of infertility. Without prior attempts at , it is difficult to know what the impact on her ability to get p regnant will be. Discussed options for conservative vs medical vs surgical management. Conservative manageme nt would include treatment of the musculoskeletal components of her pain first. It could als o include stopping OCPs and attempting if that is her primary desire. Medical management options for endometriosis includes continuous OCPs/Nuvaring, POPs, Depo provera, Nexplanon or mirena IUD. Other options include use of Depo Lupron or Orilissa for o varian suppression. Given her migraines with aura, she should likely be transitioned off of estrogen containing contraceptives. We reviewed that all of these medical management strateg ies have been shown in a variety of studies to have benefit in treatment of pelvic pain. Surgical intervention would include diagnostic laparoscopy with excision of endometriosis i f present. Risks of surgery include bleeding, infection, damage to internal structures inclu ding bowel, bladder, ureter and blood vessels, need for additional surgery, laparotomy and p ersistent pain. Hysterectomy is regarded as definitive therapy for dysmenorrhea but would no t be compatible with her desires for future fertility. She needs to be aware that even if th ere is the presence of endometriosis, it may not be completely responsible for her pain and she may continue to experience pelvic pain. If this is the case, she is aware that we would need to look to other diagnostic and treatment methods to treat pain if it persists. We also reviewed that postoperative pain will be more difficult to manage in a patient on chronic n arcotics. After discussion, we decided on the following treatment plan: -Trial of heat/ice tx alternating q20 min -Change to ibuprofen 600mg q6-8 hours -Rx for Aygestin with instructions for uptitration. Patient aware to stop OCPs. -Referral to pelvic floor PT (External, plans to do in [place]) -Referral for massage therapy (aware to schedule with deep tissue massage) -Rx for Aq lidocaine provided (for dyspareunia, vulvodynia) -ARLENE signed to obtain operative notes and photos, pathology, imaging for further review -Consider referral to [facility] for preconception consultation in the future -Revisit genetics referral for strong family h/o various cancers -Consider surgery in the future if these tx are unsuccessful but she needs to be aware that this may not help with all of her pain complaints F/u trevin Jenkins, MS3 A student assisted with documenting this service. I saw the patient, reviewed and verified all information documented by the medical student and made modifications to such informatio n, when appropriate. Shruti Wheeler MD [facility] AT [address] [address] documented in this en counter Plan of Treatment +--------+ + + + [...] | + +--------+ + + + | PROCEDURE NOTE | Routin | 12/03/2018 | | Results for this | | | e | 4:11 PM | | procedure are in the | [...] + + documented in this encounter Results PROCEDURE NOTE (12/03/2018 4:11 PM PDT)OUTSIDE RADIOLOGY - ULTRASOUND (06/19/2018 12:00 AM PDT) + + + | Narrative | Performed At | + + + | | | + + + documented in this encounter Visit Diagnoses + + | Diagnosis | + + | Pelvic pain - Primary Unspecified symptom associated with female genital organs | + + | Dyspareunia due to medical condition in female | + + documented in this encounter
--- OUTSIDE RECORDS SUMMARY | ~2020-01-18 | XMS | Encounter Summary ---
Demographics + + + | Address | [address] | | | [place] [address] | + + + | Home Phone | | + + + | Preferred Language | Unknown | + + + | Marital Status | | + + + | Mosque Affiliation | Unknown | + + + | Race | White | + + + | Ethnic Group | Not or | + + + Author + + + | Author | [facility] | + + + | Organization | [facility] | + + + | Address | Unknown | + + + | Phone | Unavailable | + + + Support + + +---------+ + | Name | Relationship | Address | Phone | + + +---------+ + | Valentin Lu | ECON | Unknown | | + + +---------+ + Care Team Providers + +------+ + | Care Slurry Control Operator Helper Name | Role | Phone | + +------+ + | Nanda Schaeffer | PCP | | + +------+ + Encounter Details +--------+ + + + + | Date | Type | Department | Care Team | Description | +--------+ + + + + | 06/21/ | Outside | UNKNOWN DEPARTMENT | Other, Faculty | | | 2017 | Records | [address] [facility] | [phone] | | | | | [address] | | | | | | [place], [place] | | | | | | [address] | | | +--------+ + + + [...] + | OUTSIDE LAB - | | 06/21/2016 | | Results for this | | PATHOLOGY | | 12:00 AM | | procedure are in the | | | | PDT | | results section. | + +--------+ + + + documented in this encounter Results OUTSIDE LAB - PATHOLOGY (06/21/2016 12:00 AM PDT) + + + | Narrative | Performed At | + + + | | | + + + documented in this encounter Visit Diagnoses Not on filedocumented in this encounter"
--- OUTSIDE RECORDS SUMMARY | ~2020-01-18 | XMS | Encounter Summary ---
Demographics + + + | Address | [address] | | | [place] [address] | + + + | Home Phone | | + + + | Preferred Language | Unknown | + + + | Marital Status | | + + + | Mormonism Affiliation | Unknown | + + + | Race | White | + + + | Ethnic Group | Not or | + + + Author + + + | Author | [facility] | + + + | Organization | [facility] | + + + | Address | Unknown | + + + | Phone | Unavailable | + + + Support + + +---------+ + | Name | Relationship | Address | Phone | + + +---------+ + | Valentin Lu | ECON | Unknown | | + + +---------+ + Care Team Providers + +------+ + | Care Callisthenics Instructor Name | Role | Phone | + +------+ + | Nanda Schaeffer | PCP | | + +------+ + Encounter Details +--------+ + + + + | Date | Type | Department | Care Team | Description | +--------+ + + + + | 07/09/ | Outside | UNKNOWN DEPARTMENT | Other, Faculty | | | 2018 | Records | [address] [facility] | [phone] | | | | | [address] | | | | | | [place], [place] | | | | | | [address] | | | +--------+ + + + [...] + | OUTSIDE LAB - | | 07/09/2017 | | Results for this | | PATHOLOGY | | 12:00 AM | | procedure are in the | | | | PDT | | results section. | + +--------+ + + + documented in this encounter Results OUTSIDE LAB - PATHOLOGY (07/09/2017 12:00 AM PDT) + + + | Narrative | Performed At | + + + | | | + + + documented in this encounter Visit Diagnoses Not on filedocumented in this encounter"
--- OUTSIDE RECORDS SUMMARY | ~2020-01-18 | XMS | Encounter Summary ---
Demographics + + + | Address | [address] | | | [place] [address] | + + + | Home Phone | | + + + | Preferred Language | Unknown | + + + | Marital Status | | + + + | Oriental Orthodox Affiliation | Unknown | + + + | Race | White | + + + | Ethnic Group | Not or | + + + Author + + + | Author | [facility] | + + + | Organization | [facility] | + + + | Address | Unknown | + + + | Phone | Unavailable | + + + Support + + +---------+ + | Name | Relationship | Address | Phone | + + +---------+ + | Valentin Lu | ECON | Unknown | | + + +---------+ + Care Team Providers + +------+ + | Care Supervisor Customer Services Name | Role | Phone | + +------+ + | Nanda Schaeffer | PCP | | + +------+ + Reason for Referral Consult to [place] (Routine) +--------+--------+ + + + + | Status | Reason | Specialty | Diagnoses / | Referred By | Referred To | | | | | Procedures | Contact | Contact | +--------+--------+ + + + + | Closed | | Obstetrics & | Diagnoses | Summer, | [facility] | | | | Gynecology | Unspecified | Shruti Underwood MD | Generalists | | | | | abdominal | [address] | [address] | | | | | pain | Levon [address] | [place] | | | | | Endometriosi | Armida Chavarria | [place] | | | | | s | [place], [place] | [address] | | | | | Procedures | [id number] | floor | | | | | REQUEST TO | Phone: | [place], [place] | | | | | SURGERY | [phone] | [address] | | | | | SHOT POLISHER AND INSPECTOR | Fax: | Phone: | | | | | [place] | [phone] | [phone] | | | | | LAP,DIAGNOST | | Fax: | | | | | IC ABDOMEN | | [phone] | | | | | [place] | | | | | | | LAP,FULGURAT | | | | | | | E/EXCISE | | | | | | | LESIONS | | | +--------+--------+ + + + + Reason for Visit + +--------+ + | Reason | Onset | Comments | | | Date | | + +--------+ + | Follow-up encounter | 11/28/ | | | | 2019 | | + +--------+ + Encounter Details +--------+ + + + + | Date | Type | Department | Care Team | Description | +--------+ + + + + | 11/28/ | Telephone | [facility] | Shruti Wheeler, | Follow-up encounter | | 2019 | | [facility] | [address] [facility] | | | | | [address] | [facility] | | | | | [address] | [place], [place] | | | | | Pavilion, 7th floor | [address] | | | | | [place], [place] | [phone] | | | | | [address] | | | | | | [phone] | | | +--------+ + + + [...] Telephone Encounter - Shruti Wheeler MD - 12/13/2018 1:15 PM PDTOutside records reviewed : 08/28/18 office visit: Patient has had 3 depo lupron injections (3.75mg dosing q3 months) sin ce surgery with some pain relief. NE add-back given due to mood swings, hot flashes. -Pap cytology neg (no cotesting) -Endocervical polyp removed (benign) 06/19/18: TVUS normal 07/09/17, 06/21/16m 06/15/15: Pap cytology neg (no cotesting) 06/21/16: Gc/Ct neg 10/16/17 office visit: 1 year h/o RLQ pain. Aggravated with any physical activity. Using OCP s semi-continuously q2-3 months. 5.4cm complex mass found on TVUS. Decision to proceed with surgery. Operative note reviewed: 10/18/17 (Roman Acuna MD) Findings: Uterus normal size and shape. Anterior cul-de-sac with several small endometrial implants on th right. No adhesions. Posterior cul-de-sac with several peritoneal implants bi laterally. Ke masters defect with probably deep endometriosis just above the right uteros acral ligament. Bilateral pelvic sidewall with endometrial implants. Normal bilateral fallop soo tubes. Left ovary with two red endometrial implants but no cysts or endometriomas. Right ovary normal. Appendix normal. Procedure: Due to amount of endometriosis, procedure just performed as a diagnostic laparos copy. elephone Encoun ter - Shruti Wheeler MD - 12/13/2018 12:50 PM PDTCalled her other providers to discuss per i-operative medication management: -Curry Peterson (psychiatry, addiction medicine): Recommends continuation of suboxone through rios rgery. Use fentanyl and dilaudid intraop prn (may require 2-3x normal dosing to override sub utex). Discharge home back on suboxone and postop narcotics. He will manage postop suboxone as she might need a temporary dose increase. Will plan to d/c with #30 oxycodone tabs (as op posed to usual #15) due to suboxone use. -Mercy Harding (endocrine): Provider called back. No need for stress dose steroids for min or procedures. Patient was instructed to double usual po dose for DOS. She is aware to conta ct her freelance makeup artist for any other issues. Shruti Wheeler MD [facility] AT [address] [phone] elephone Encounter - Shruti Wheeler MD - 12/10/2018 7:48 AM PDTYes unfortunately her preop needs to be with rosalino sullivan to take care of the remaining surgery details. Annia, we could move her surgery to 01/15 if she wants and try to squeeze her in on 01/14 for a preop appt. Feel free to offer her that as an option. Please let her know that this is a same day surgery so she may also want a hot el the night after surgery if she doesn't want to drive all the way back to [facility]. Shruti Wheeler MD elephone Encounter - Vielka Tolentino RN - 12/09/2018 1:23 PM PDTTC to pt. RN relayed Dr. Wheeler's message to pt . She understands it may take 2 weeks to hear back from our SS. Pt voiced understanding jan chavarriahubert Endocrinology and her pain provider being involved for best care prior and after proce dure. Pt states it is ok for Dr. Wheeler to contact these providers. Quality Assurance Coach: Dr. Mercy Harding in [place], [place] at [facility] Pain clinic provider: Dr. Curry Peterson in [place], [place] at [facility]. Pt did want to know if she can she do preop or post-op closer to her and have provider send records? RN explained the preop and postop will need to be done with Dr. Wheeler. The preop w ill definitely need to be with Dr. Wheeler. If she is doing well there is potential that we ma y be able to cancel the postop and check in by phone. RN explained sometimes we can coordinate for pts to have a preop appt the day prior to her procedure. Then she would stay overnight and come in for her surgery the next morning. RN un sure if this will work for MDs schedule but will forward this request along. Routing to Dr. Wheeler for review. elephone Encounter - Shruti Wheeler MD - 12/09/2018 12:10 PM PDTSurgery orders placed for end of Dec. She will be called by the manager of project management soon to finalize these date/appointments. For me to know: Will need inperson PMC for recommendations on stress dose steroids due to Addisons dz on chronic hydrocortisone. Will also need to communicate with her pain MD to di scuss management of her suboxone alex-operatively. Needs preop visit with me to update H&P a nd sign consent. Shruti Wheeler MD Nursing can you help me figure out who she sees for endocrine and who prescribes her suboxo ne so that I can get in touch with both of these providers? Thanks! Shruti Wheeler MD elephone Encounter - Vielka Tolentino RN - 12/06/2018 2:42 PM PDTTC to pt. Pt states she would like to have the endometriosis removed with surgery. No scheduling restrictions other than scheduling at [facility] a month out to coordinate with her work. Routing to Dr. Wheeler for review. elephone Encounter - Vielka Tolentino RN - 11/28/2018 8:26 AM PDTTC to pt. LMTCB for non-urgent message from he r provider at her earliest convenience. Electronically signed by Vielka Tolentino RN at 11/28 8:28 AM PDTTelephone Encounter - Vielka Tolentino RN - 11/28/2018 8:24 AM PDTFormatt ing of this note might be different from the original. Shruti Wheeler MD [facility] Prepleater Triage Pool I reviewed her op note. She has a fair amount of endometriosis that was not addressed with her prior surgery. As we discussed at her visit, this may or may not be the source of her pa in but I am happy to offer her removal of the endometriosis in addition to the treatments th at we already discussed to see if it helps. Please let me know if she wishes to proceed with scheduling and whether she has any restrictions. Thanks! Shruti Wheeler MD Routing to [facility] roller embosser Pool to contact pt. documented in this encounter Plan of Treatment +--------+ + + + + | Date | Type | Specialty | Care Team | Description | +--------+ + + + + | 01/15/ | Procedure | Surgery | | | | 2020 | Pass | | | | +--------+ + + + + documented as of this encounter Visit Diagnoses + + | Diagnosis | + + | Pelvic pain - Primary Unspecified symptom associated with female genital organs | + + | Endometriosis Endometriosis, site unspecified | + + documented in this encounter"
[~2020-01-18 13:28] MED LIST: ADIPEX-P37.5 M1 PO; AMITRIPTYLINE H10 MG PO; HYDROCODON-ACE1 EA10 PO; LEVOTHYROXINE137 MCG PO; MINOCYCLINE HC100 MG PO; MONONESSA1 EACH PO; NAPROSYN500 MG PO; NORCO 5-325 TA1 EACH PO; NORETHINDRONE0.35 MG PO; POLYETHYLENE G255 GM PO; PRAZOSIN HCL1 MG PO; PROZAC20 MG PO; SUBOXONE 4 MG-1 EACH SL; SYNTHROID75 MCG PO; VALIUM5 MG PO; ZENCHENT1 EACH PO; ZOFRAN ODT4 MG PO
--- OUTSIDE RECORDS SUMMARY | 2020-01-18 13:32 | XMS ---
PreManage Notification: RACHAEL MENDOZA Security Clinical Interviewer Events No recent Security Events currently on file [facility] There are no care providers on record at this time. [facility] has no Care Guidelines for this patient. Kristy VISIT COUNT (12 MO.) 1 DOMINIC Cote TOTAL 1 NOTE: Visits indicate total known visits. ED/C VISIT TRACKING (12 MO.) 01/18/2020 13:29 DOMINIC [place] TYPE: Emergency COMPLAINT: - ABD PAIN, 18 WKS INPATIENT VISIT TRACKING (12 MO.) No inpatient visits to display in this time frame [email or web address]
[2020-01-18] MEDS ORDERED: HYDROCORTISONE5 MG PO (14:01)
[2020-01-18] MEDS ORDERED: HYDROCORTISON28.4 G8 PO (14:01)
== END 2020-01-18 15:15 | disposition home or self-care (01) ==
LOC: ED 13:28
DX: O99.891 Other specified diseases and conditions complicating pregnancy (principal); M24.29 Disorder of ligament, other specified site; O99.282 Endocrine, nutritional and metabolic diseases complicating pregnancy, second trimester; E03.9 Hypothyroidism, unspecified; Z88.5 Allergy status to narcotic agent; Z79.899 Other long term (current) drug therapy; Z3A.18 18 weeks gestation of pregnancy
CPT/HCPCS: 76815; 80053; 81001; 85025; 96361; 96374; 99284-25; A9270; J1170; J7030

== ENCOUNTER 2020-05-05 13:38 | Emergency (ER) | payer BC ==
[~2020-05-05] VITALS: Ht 175.3 cm; Wt 127.0 kg
[~2020-05-05 13:38] MED LIST changes: +HYDROCORTISON28.4 G8 PO; +HYDROCORTISONE5 MG PO
--- OUTSIDE RECORDS SUMMARY | 2020-05-05 13:40 | XMS ---
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 Kristy VISIT COUNT (12 MO.) 2 [facility] [place] TOTAL 2 NOTE: Visits indicate total known visits. ED/UCC VISIT TRACKING (12 MO.) 05/05/2020 13:39 [facility] [place] TYPE: Emergency COMPLAINT: - ALLERGIC REACTION 01/18/2020 13:29 [facility] [place] TYPE: Emergency COMPLAINT: - ABD PAIN, 18 WKS DIAGNOSES: - OTH DISEASES AND CONDITIONS COMPLICATING - Allergy status to narcotic agent - Endocrine, nutritional and metabolic diseases complicating , second trimester - DISORDER OF LIGAMENT, OTHER SPECIFIED SITE - 18 weeks gestation of - Other specified diseases and conditions complicating - Hypothyroidism, unspecified - Other specified diseases and conditions complicating - Disorder of ligament, other specified site - Allergy status to narcotic agent - Disorder of ligament, other specified site - Other terminologist (current) drug therapy - Lower abdominal pain, unspecified INPATIENT VISIT TRACKING (12 MO.) No inpatient visits to display in this time frame [email or web address]
[2020-05-05] MEDS ORDERED: NUVIGIL200 MG PO (14:04)
[2020-05-05] MEDS ORDERED: HYDROCORTISONE5 MG PO (14:04)
[2020-05-05] MEDS ORDERED: LEVOTHYROXINE200 MC2 PO (14:05)
[2020-05-05] MEDS ORDERED: PRENATAL VITAM1 EAC2 PO (14:05)
[2020-05-05] MEDS ORDERED: VITAMIN D21250 MCG (14:06)
[2020-05-05] MEDS ORDERED: BUPRENORPHINE HC8 MG SL (14:07)
== END 2020-05-05 15:49 | disposition home or self-care (01) ==
LOC: ED 13:38
DX: O99.891 Other specified diseases and conditions complicating pregnancy (principal); R22.0 Localized swelling, mass and lump, head; T49.8X5A Adverse effect of other topical agents, initial encounter; Z3A.33 33 weeks gestation of pregnancy; E03.9 Hypothyroidism, unspecified; Z79.899 Other long term (current) drug therapy
CPT/HCPCS: 96374; 96375; 99283-25; J1200; J2930; J7030

== ENCOUNTER 2020-06-09 00:08 | Inpatient (IN) | payer BC ==
[~2020-06-09] VITALS: Ht 175.3 cm; Wt 140.6 kg
[~2020-06-09 00:08] MED LIST changes: +BUPRENORPHINE HC8 MG SL; +LEVOTHYROXINE200 MC2 PO; +NUVIGIL200 MG PO; +PRENATAL VITAM1 EAC2 PO; +VITAMIN D21250 MCG
[2020-06-09] MEDS ORDERED: ARMODAFINIL250 MG PO (02:47)
[2020-06-09] MEDS ORDERED: ZYRTEC10 M3 PO (02:53)
[2020-06-09] MEDS ORDERED: PROAIR RESPICL90 MCG INH (02:55)
[2020-06-09] MEDS ORDERED: NOVOLIN N100 UNIT/1 SUB-Q ×2 (02:57→02:58)
--- NOTE | 2020-06-09 09:42 | PR ---
[facility] [address] [facility] [place], [place] [address] Signed Progress Notes IP Datetime Report Generated by CPN: 06/09/2020 09:42 PROGRESS NOTES: [id number] Other Impressions: Slow progression Plan: Continue Present Management; Cervical Ripening VITAL SIGNS: [id number] Vital Signs: Reviewed; Within Normal Limits EXAM: [id number] Dilatation: 2.0 Effacement: 25 Station: -3 MEMBRANES: [id number] Membranes Status: Intact Comments: Tolerating contractions, received Cytotec x3. Getting Hydrocortisone and Burpenorphine, continue monitoring BS's FETUS A: [id number] FHR Baseline: 125 Variability: Moderate 6-25bpm Accelerations: 15X15 Presentation: Vertex FETUS B: [id number] Signing Physician: Gonzales Varela MD Copies: ~ *Electronically Signed* 06/09/20 0942 GONZALES VARELA MD PATIENT NAME: RACHAEL MENDOZA PROGRESS NOTE DATE OF : [birth year] PHYSICIAN: GONZALES VARELA MD RPT #: [id number] REPORT IS CONFIDENTIAL AND NOT TO BE RELEASED WITHOUT AUTHORIZATION
--- NOTE | 2020-06-09 11:21 | PR ---
[facility] [address] [facility] [place], [place] [address] Signed Progress Notes IP Datetime Report Generated by CPN: 06/09/2020 11:21 PROGRESS NOTES: [id number] Other Impressions: Slow Progress Procedures: Epidural Placement Plan: Continue Present Management; Cervical Ripening VITAL SIGNS: [id number] Vital Signs: Reviewed; Within Normal Limits EXAM: [id number] Dilatation: 2.0 Effacement: 25 Station: -3 MEMBRANES: [id number] Membranes Status: Intact Comments: Comfortable with Epidural, having frequent contrqctions, but minimal cervical lchange. Will continue observation, additional Cytotec if contractionsd space out. Bs's stable. FETUS A: [id number] FHR Baseline: 125 Variability: Moderate 6-25bpm Accelerations: 15X15 Presentation: Vertex FETUS B: [id number] Signing Physician: Gonzales Varela MD Copies: ~ *Electronically Signed* 06/09/20 1121 GONZALES VARELA MD PATIENT NAME: RACHAEL MENDOZA PROGRESS NOTE DATE OF : [birth year] PHYSICIAN: GONZALES VARELA MD RPT #: [id number] REPORT IS CONFIDENTIAL AND NOT TO BE RELEASED WITHOUT AUTHORIZATION
--- NOTE | 2020-06-09 14:34 | PR ---
[facility] [address] [facility] [place], [place] [address] Signed Progress Notes IP Datetime Report Generated by CPN: 06/09/2020 14:34 PROGRESS NOTES: [id number] Other Impressions: Slow progress Procedures: Artificial ROM Plan: Continue Present Management; Cervical Ripening VITAL SIGNS: [id number] Vital Signs: Reviewed; Within Normal Limits EXAM: [id number] Dilatation: 3.0 Effacement: 60 Station: -3 MEMBRANES: [id number] Membranes Status: Ruptured Comments: Comfortable with Epidural. BS's normal, continuing with Hydrocortisone and Buprenorphine FETUS A: [id number] FHR Baseline: 125 Variability: Moderate 6-25bpm Accelerations: 15X15 Presentation: Vertex FETUS B: [id number] Signing Physician: Gonzales Varela MD Copies: ~ *Electronically Signed* 06/09/20 1434 GONZALES VARELA MD PATIENT NAME: RACHAEL MENDOZA PROGRESS NOTE DATE OF : [birth year] PHYSICIAN: GONZALES VARELA MD RPT #: [id number] REPORT IS CONFIDENTIAL AND NOT TO BE RELEASED WITHOUT AUTHORIZATION
--- NOTE | 2020-06-09 17:39 | PR ---
[facility] [address] [facility] [place], [place] [address] Signed Progress Notes IP Datetime Report Generated by CPN: 06/09/2020 17:39 PROGRESS NOTES: [id number] Other Impressions: Slow PRogress Procedures: Intrauterine Pressure Catheter; Scalp Electrode Plan: Continue Present Management; Cervical Ripening VITAL SIGNS: [id number] Vital Signs: Reviewed; Within Normal Limits EXAM: Z5636927 Dilatation: 3.0 Effacement: 70 Station: -3 MEMBRANES: [id number] Membranes Status: Ruptured ROM Note: By Dr. Varela Comments: Comfortable with Epidural, will insert internal monitors to check contraciton strength since contrac tions seem to be freqkuent enough, buit minimal cervical change. May need Pitocin augmentation. BS's stable, continue with Prednisone and Buprenorphine FETUS A: [id number] FHR Baseline: 125 Variability: Moderate 6-25bpm Accelerations: 15X15 Presentation: Vertex FETUS B: [id number] Signing Physician: Gonzales Varela MD Copies: ~ *Electronically Signed* 06/09/20 1734 GONZALES VARELA MD PATIENT NAME: KELLYRACHAEL PROGRESS NOTE DATE OF : [birth year] PHYSICIAN: GONZALES VARELA MD RPT #: [id number] REPORT IS CONFIDENTIAL AND NOT TO BE RELEASED WITHOUT AUTHORIZATION
--- NOTE | 2020-06-09 22:56 | PR ---
[facility] [address] [place], [place] [address] Signed Progress Notes IP Datetime Report Generated by CPN: 06/09/2020 22:56 PROGRESS NOTES: [id number] Impression: Arrest of Dilatation/Descent Other Impressions: Slow PRogress Procedures: Intrauterine Pressure Catheter; Scalp Electrode Other Procedures: Stop Pitocin Plan: Deliver- Section Informed Consent Obtain: Section Delivery VITAL SIGNS: [id number] Vital Signs: Reviewed; Within Normal Limits EXAM: [id number] Dilatation: 4.0 Effacement: 90 Station: -2 MEMBRANES: [id number] Membranes Status: Ruptured ROM Note: By Dr. Varela Comments: Comfortable with Epidural, having adequate contractions, but no change in 3-4 hours. head still fairly high, not doming down. Due to high risk and lack of cervical change, with lower chance of successful vaginal delivery, recommend C/S now instead of continuing to try for vaginal . Discussed with patient, who agrees. Discussed C/S risks. Consent signed. Will increase Hydrocortisone dose per Tyre Finisher And Examiner suggestion at time of C/S (additional 75 mg to total 100 mg in past 2 hours). call or contact centre operator to [place] for C/S. FETUS A: [id number] FHR Baseline: 125 Variability: Moderate 6-25bpm Accelerations: 15X15 Presentation: Vertex FETUS B: [id number] Signing Physician: Gonzales Varela MD Copies: ~ *Electronically Signed* 06/09/20 8788 GONZALES VARELA MD PATIENT NAME: RACHAEL MENDOZA PROGRESS NOTE DATE OF : [birth year] PHYSICIAN: GONZALES VARELA MD RPT #: [id number] REPORT IS CONFIDENTIAL AND NOT TO BE RELEASED WITHOUT AUTHORIZATION
--- NOTE | 2020-06-10 09:36 | OR ---
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 POSTOPERATIVE DIAGNOSES: Failure to progress, Point's disease, gestational diabetes, poorly controlled, and chronic pain. Posterior vertex position. PROCEDURE: Primary low transverse segment , delivery of a live female . FULL TIME PARAMEDIC: Dr. Nieves. ANESTHESIA: Epidural. ESTIMATED BLOOD LOSS: 700 mL. COMPLICATIONS: None. DRAINS: Nagel to bladder. FINDINGS: Live female infant, Apgars 8 and 9. Weight 6 pounds 15 ounces. Normal uterus, normal tubes, and ovaries bilateral. DESCRIPTION OF PROCEDURE: The patient was brought to the operating room, placed in supine position. After adequate epidural anesthesia was obtained, she was prepped and draped in usual sterile fashion. A Pfannenstiel skin incision was made with a scalpel, extended through subcutaneous tissue with a scalpel. The fascia was nicked with scalpel and extended in transverse fashion using curved scissors. The underlying abdominal musculature was Electronically Signed By: ROMAN ACUNA MD 06/10/20 0936 PATIENT NAME: RACHAEL MENDOZA OPERATIVE REPORT DATE OF : [birth year] REPORT #: [id number] PHYSICIAN: ROMAN ACUNA MD PCP: ANTONIO MCDONALD REPORT IS CONFIDENTIAL AND NOT TO BE RELEASED WITHOUT AUTHORIZATION [facility] [address] [place], [place] [address] Signed bluntly and sharply from the fascia above and below the incision. The abdominal musculature was bluntly sharply and along the midline. The peritoneum was grasped with hemostats, elevated, nicked with curved scissors and extended in vertical fashion using finger dissection. The Russell self-retaining retractor was inserted into the incision and tightened in place. The lower uterine segment was identified and the lower uterine segment carefully nicked with scalpel. A finger was placed in the opening and the incision extended in a transverse fashion using finger dissection. The was noted to be in ROP vertex presentation. The head was delivered from the incision. There was a loose cord around the neck, once this was removed. The rest of the easily delivered from the incision. The cord was doubly clamped and cut. The infant passed off the table in good condition to awaiting freight checker. The placenta was then manually removed. The uterine cavity was explored with a lap pad to remove any retained membranes. An angle stitch of 0 Monocryl was placed at one in the incision and a running locking stitch of 0-Monocryl starting at the other end used to close the incision. A 2nd running stitch of 0 Monocryl was used to imbricate the 1st layer. There was a small amount of bleeding at the left angle. This was controlled with a hekhfv-re-ejync stitch of 0 Monocryl, placing the stitch laterally with a finger behind the broad ligament to make sure that no bowel or pelvic structures were caught within the closure with this extra stitch. Good hemostasis was noted. The entire pelvis was irrigated, suctioned, and examined, and any superficial bleeding spots cauterized with the Bovie. The Russell retractor was removed and sheet of ACell placed over the lower uterine segment to help with healing. The anterior wall peritoneum was then closed using running stitch of 2-0 Vicryl suture. The abdominal musculature was reapproximated using interrupted stitches of 0 Vicryl suture. The abdominal wall incision was irrigated, suctioned, and examined, and any bleeding spots cauterized with the Bovie. The abdominal musculature was reapproximated using interrupted stitches of 0 Vicryl suture. The fascia was then closed using two running stitch of 0 Vicryl suture meeting in the midline. Subcutaneous tissue was irrigated, suctioned, and examined and any bleeding spots cauterized with the Bovie. There was slight oozing and no definite bleeding spots, so Taco was sprinkled over the subcutaneous tissue to help with hemostasis and then the subcutaneous tissue closed using interrupted stitches of 3-0 Vicryl suture. The skin was reapproximated using skin clips. The patient tolerated the procedure well, went to recovery room in good condition. The sponge, needle, and instrument count were correct at the end of the procedure. Roman Acuna MD MJB/KENTRELL Electronically Signed By: ROMAN ACUNA MD 06/10/20 0936 PATIENT NAME: RACHAEL MENDOZA OPERATIVE REPORT DATE OF : [birth year] REPORT #: [id number] PHYSICIAN: ROMAN ACUNA MD PCP: ANTONIO MCDONALD REPORT IS CONFIDENTIAL AND NOT TO BE RELEASED WITHOUT AUTHORIZATION [address] [address] Signed /[id number] Copies: ~ Electronically Signed By: ROMAN ACUNA MD 06/10/20 0936 PATIENT NAME: RACHAEL MENDOZA TIFF OPERATIVE REPORT DATE OF : [birth year] REPORT #: [id number] PHYSICIAN: ROMAN ACUNA MD PCP: ANTONIO MCDONALD REPORT IS CONFIDENTIAL AND NOT TO BE RELEASED WITHOUT AUTHORIZATION
--- NOTE | 2020-06-10 09:46 | PR ---
[facility] [address] [facility] [place] [address] Signed PP Progress Notes Datetime Report Generated by CPN: 06/10/2020 09:46 SUBJECTIVE: [id number] Pain: Within Normal Limits Nausea/Vomiting: Denies Vital Signs: [id number] Vital Signs: Reviewed; Within Normal Limits Abdomen/Uterus: Normal Lochia: Normal Extremities: Normal Exam Comments: dressing slight drainage on ends IMPRESSION/PLAN/PROCEDURES: [id number] Impression: Normal Progression Plan: Continue Present Management Procedures: None Progress Notes: Doing well, tolerating pain well so far, tolerating food. Will begin decreasing Hydrocortisone tonight, continue with Burenorphine and Ibuprofen. Continue monitoring. Signing Physician: Gonzales Varela MD Copies: ~ *Electronically Signed* 06/10/20 0946 GONZALES VARELA MD PATIENT NAME: RACHAEL MENDOZA PROGRESS NOTE DATE OF : [birth year] PHYSICIAN: GONZALES VARELA MD RPT #: [id number] REPORT IS CONFIDENTIAL AND NOT TO BE RELEASED WITHOUT AUTHORIZATION
--- NOTE | 2020-06-11 12:45 | PR ---
[facility] [address] [facility] [place], [place] [address] Signed PP Progress Notes Datetime Report Generated by CPN: 06/11/2020 12:45 SUBJECTIVE: [id number] Pain: Within Normal Limits Nausea/Vomiting: Denies Vital Signs: [id number] Vital Signs: Reviewed; Within Normal Limits Abdomen/Uterus: Normal Lochia: Normal Extremities: Normal Incision: Normal Exam Comments: dressing slight drainage on ends IMPRESSION/PLAN/PROCEDURES: [id number] Impression: Normal Progression Plan: Continue Present Management Procedures: None Progress Notes: Doing well, without complaint, except excessive sleepiness (previous medical problem). Will restart Armodafinil today - patient will bring own medication since not on hospital pharmacy. Signing Physician: Gonzales Varela MD Copies: ~ *Electronically Signed* 06/11/20 1245 GONZALES VARELA MD PATIENT NAME: RACHAEL MENDOZA PROGRESS NOTE DATE OF : [birth year] PHYSICIAN: GONZALES VARELA MD RPT #: [id number] REPORT IS CONFIDENTIAL AND NOT TO BE RELEASED WITHOUT AUTHORIZATION
--- NOTE | 2020-06-12 10:19 | PR ---
[facility] [address] [facility] [place], [place] [address] Signed PP Progress Notes Datetime Report Generated by CPN: 06/12/2020 10:19 SUBJECTIVE: [id number] Pain: Within Normal Limits Nausea/Vomiting: Denies Vital Signs: [id number] Vital Signs: Reviewed; Within Normal Limits Abdomen/Uterus: Normal Lochia: Normal Extremities: Normal Incision: Normal Exam Comments: dressing slight drainage on ends IMPRESSION/PLAN/PROCEDURES: [id number] Impression: Normal Progression Plan: Discharge Other Plans: Borader Status (Annotations: Data stored by [facility] on behalf of user) Procedures: None Progress Notes: Doing well, eatilng, voiding without difficulty, still sleepy since unable to take own meds here (Armodafinil), tolerating steroid taper well, ready for discharge but baby will be staying due to withdrawal symptoms, so will make Boarder Status. Signing Physician: Gonzales Varela MD Copies: ~ *Electronically Signed* 06/12/20 1019 GONZALES VARELA MD PATIENT NAME: RACHAEL MENDOZA PROGRESS NOTE DATE OF : 89 PHYSICIAN: GONZALES VARELA MD RPT #: [id number] REPORT IS CONFIDENTIAL AND NOT TO BE RELEASED WITHOUT AUTHORIZATION
== END 2020-06-12 13:30 | disposition home or self-care (01) | DRG 787 ==
LOC: FBC 00:08
PROVIDERS: ADMIT General Practice; ATTEND General Practice
PROC: 3E0P7VZ Introduction of Hormone into Female Reproductive, Via Natural or Artificial Opening (ICD-10-PCS; 2020-06-09)
PROC: 10907ZC Drainage of Amniotic Fluid, Therapeutic from Products of Conception, Via Natural or Artificial Opening (ICD-10-PCS; 2020-06-09)
PROC: 10H07YZ Insertion of Other Device into Products of Conception, Via Natural or Artificial Opening (ICD-10-PCS; 2020-06-09)
PROC: 00HU33Z Insertion of Infusion Device into Spinal Canal, Percutaneous Approach (ICD-10-PCS; 2020-06-09)
PROC: 3E0R3BZ Introduction of Anesthetic Agent into Spinal Canal, Percutaneous Approach (ICD-10-PCS; 2020-06-09)
PROC: 10D00Z1 Extraction of Products of Conception, Low, Open Approach (ICD-10-PCS; principal; 2020-06-09 23:38)
DX: O99.284 Endocrine, nutritional and metabolic diseases complicating childbirth (principal); E27.1 Primary adrenocortical insufficiency; Z37.0 Single live birth; O62.1 Secondary uterine inertia; O69.81X0 Labor and delivery complicated by cord around neck, without compression, not applicable or unspecified; Z3A.38 38 weeks gestation of pregnancy; O24.424 Gestational diabetes mellitus in childbirth, insulin controlled; O99.354 Diseases of the nervous system complicating childbirth; G89.29 Other chronic pain; E03.9 Hypothyroidism, unspecified; O99.824 Streptococcus B carrier state complicating childbirth; O99.344 Other mental disorders complicating childbirth; F41.9 Anxiety disorder, unspecified; F32.9 Major depressive disorder, single episode, unspecified; G43.909 Migraine, unspecified, not intractable, without status migrainosus; O99.214 Obesity complicating childbirth; E66.9 Obesity, unspecified; O99.892 Other specified diseases and conditions complicating childbirth; M50.30 Other cervical disc degeneration, unspecified cervical region; M51.34 Other intervertebral disc degeneration, thoracic region; O99.324 Drug use complicating childbirth; F12.90 Cannabis use, unspecified, uncomplicated; O99.52 Diseases of the respiratory system complicating childbirth; J45.990 Exercise induced bronchospasm; Z79.899 Other long term (current) drug therapy; Z88.5 Allergy status to narcotic agent; Z88.0 Allergy status to penicillin; Z79.891 Long term (current) use of opiate analgesic
CPT/HCPCS: 01961; 36415; 80053; 85027; A9270; J0690; J1720; J1885; J2001; J2270; J2274; J2405; J2540; J2590; J2795; J7042; J7121

== ENCOUNTER 2023-12-27 10:53 | Inpatient (IN) | payer BC, OTHER ==
[~2023-12-27] VITALS: Ht 175.3 cm; Wt 130.2 kg
[~2023-12-27 10:53] MED LIST changes: +ARMODAFINIL250 MG PO; +NOVOLIN N100 UNIT/1 SUB-Q; +PROAIR RESPICL90 MCG INH; -VITAMIN D21250 MCG; +VITAMIN D21250 MCG PO; +ZYRTEC10 M3 PO
[2024-01-02] MEDS ORDERED: SOD+POT BICARB/CITRIC ACID 2 EA TABLET.EFF PO ONE (05:15)
[2024-01-02] MEDS ORDERED: HYDROCORTISONE SOD SUCCINATE 100 MG/2 ML VIAL IV SCH ×2 (05:15→12:00)
[2024-01-02] MEDS ORDERED: LACTATED RINGER'S 1,000 ML IV PRN (05:15)
[2024-01-02 05:48] LABS: HEMATOCRIT 40.2 % (35.0-50.0); HEMOGLOBIN 13.8 g/dL (12.0-18.0); MCH 30.5 (27-36); MCHC 34.4 g/dl (30-36); MCV 88.7 fl (81-99); RBC 4.53 M/ul (4.3-5.7); RDW 13.3 (10.5-15.0)
[2024-01-02 05:55] VITALS: BP 137/91
[2024-01-02 06:30] LABS: ABO B; RH POSITIVE
[2024-01-02 06:31] LABS: ANTIBODY SCREEN NEGATIVE
[2024-01-02] MEDS ORDERED: CEFAZOLIN SODIUM 3 GM/30 ML SYR IV SCH (07:00)
[2024-01-02] MEDS ORDERED: ondansetron HCL 4 MG/2 ML VIAL ONE (07:07)
[2024-01-02] MEDS ORDERED: OXYTOCIN 10 UNITS/ML VIAL ONE (07:07)
[2024-01-02] MEDS ORDERED: DEXAMETHASONE SOD PHOS 4 MG/ML VIAL ONE (07:07)
[2024-01-02] MEDS ORDERED: BUPIVACAINE 0.75% IN DEXTROSE 2 ML AMP ONE (07:08)
[2024-01-02] MEDS ORDERED: LIDOCAINE HCL 2% 5 ML SDV ONE (07:08)
[2024-01-02] MEDS ORDERED: PHENYLEPHRINE HCL 10 MG/ML VIAL ONE (07:09)
[2024-01-02] MEDS ORDERED: SODIUM CHLORIDE 0.9% 40 ML IV ONE (07:09)
[2024-01-02] MEDS ORDERED: dexmedeTOMIDine HCl 200 MCG/2 ML VIAL ONE (07:09)
[2024-01-02] MEDS ORDERED: Ropivacaine HCl 0.5% 30 ML VIAL ONE (07:09)
[2024-01-02] MEDS ORDERED: MORPHINE SULFATE 1 MG/ML VIAL ONE (07:10)
[2024-01-02] MEDS ORDERED: fentaNYL citrate 100 MCG/2 ML VIAL ONE (07:10)
[2024-01-02 07:11] LABS: AMPHETAMINES, URINE NEGATIVE (NEGATIVE); BARBITURATES, URINE NEGATIVE (NEGATIVE); BENZODIAZEPINE, URINE NEGATIVE (NEGATIVE); BUPRENORPHINE, URINE POSITIVE (NEGATIVE); CANNABINOID, URINE NEGATIVE (NEGATIVE); COCAINE, URINE NEGATIVE (NEGATIVE); ECSTASY, URINE NEGATIVE (NEGATIVE); FENTANYL, URINE NEGATIVE (NEGATIVE); METHADONE, URINE NEGATIVE (NEGATIVE); OPIATES, URINE NEGATIVE (NEGATIVE); OXYCODONE, URINE NEGATIVE (NEGATIVE); PHENCYCLIDINE, URINE NEGATIVE (NEGATIVE)
[2024-01-02] MEDS ORDERED: HYDROmorphone HCL 1 MG/ML SYR IV PRN (08:15)
[2024-01-02] MEDS ORDERED: fentaNYL citrate 50 MCG/ML SDV IV PRN (08:15)
[2024-01-02] MEDS ORDERED: KETOROLAC TROMETHAMINE 30 MG/ML VIAL IV PRN ×2 (08:15)
[2024-01-02] MEDS ORDERED: ondansetron HCL 4 MG/2 ML VIAL IV PRN ×3 (08:15→09:15)
[2024-01-02] MEDS ORDERED: IBLOOD GLUCOSE TEST STRIP 1 EA TEST VI PRN (08:15)
[2024-01-02] MEDS ORDERED: diphenhydrAMINE HCL 50 MG/ML VIAL IV PRN ×2 (08:15)
[2024-01-02] MEDS ORDERED: NALOXONE HCL 0.4 MG SYR IV PRN ×2 (08:15)
[2024-01-02] MEDS ORDERED: TRANEXAMIC ACID 1,000 MG/10 ML AMP ONE (08:31)
[2024-01-02] MEDS ORDERED: LACTATED RINGER'S 1,000 ML IV SCH (09:14)
[2024-01-02] MEDS ORDERED: OXYCODONE HCL 5 MG TAB PO PRN (09:15)
[2024-01-02] MEDS ORDERED: HYDROCODONE/ACETA 5/325 TAB PO PRN (09:15)
[2024-01-02] MEDS ORDERED: PROMETHAZINE HCL 25 MG TAB PO PRN (09:15)
[2024-01-02] MEDS ORDERED: PROCHLORPERAZINE EDISYLATE 10 MG/2 ML VIAL IV PRN (09:15)
[2024-01-02] MEDS ORDERED: PROMETHAZINE HCL 25 MG SUPP PR PRN (09:15)
[2024-01-02] MEDS ORDERED: METOCLOPRAMIDE HCL 10 MG/2 ML SDV IV PRN (09:15)
[2024-01-02] MEDS ORDERED: OXYCODONE/APAP 5/325 TAB PO PRN (09:15)
[2024-01-02] MEDS ORDERED: OXYTOCIN/0.9 % SODIUM CHLORIDE 500 ML IV SCH (09:15)
[2024-01-02] MEDS ORDERED: bisacodyL 10 MG SUPP PR PRN (09:15)
[2024-01-02 09:35] VITALS: BP 125/65
--- NOTE | 2024-01-02 09:56 | NUR ---
01/02/24 0956 ILIANA FRITZ 0914 PT ARRIVED TO [facility] RM 103 VIA STREACHER. PT HAS NATURAL AIRWAY AND PT BREATHING EQUAL AND UNLABORED. PT SIGNIFICANT OTHER HAS BABY IN ROOM. PT ATTACHED TO ALL MONITORS. PT REPORTIN 1/10 TOLERABLE PAIN. PT SPINAL LEVEL AT UMBILICUS. IV IN LEFT HAND, CONTINUOUSLY RUNNING LR WITH 40 OF PITOCIN. 0923 FUNDAL CHECK DONE, FIRM AND MIDLINE. PT HAS SMALL AMOUNT OF RUBUS DRAINAGE. BABY AT BREAST. PT SITTING UP SLIGHTLY IN BED TO HOLD BABY. 0932 SPINAL JUST BELOW UMBILICUS. PT REPORTING 1/10 TOLERABLE PAIN. 0942 PT REPORTING 1/10 TOLERABLE PAIN. PT SITTING UP IN BED WITH BABY AT BREAST. PT REPORTS NO NAUSEA AT THIS TIME. IV IN LEFT HAND RUNNING LR WITH 20 UNITS OF PITOCIN. SIGNIFICANT OTHER AT BEDSIDE, FAMILY IN ROOM. REPORT GIVEN TO [facility] NURSE, TRANSFER OF CARE DONE AT THIS TIME. BED LOW AND LOCKED, BED PLUGGED IN. PATIENT SITTING UPRIGHT IN BED WITH CALL LIGHT WITHIN REACH.
[2024-01-02] MEDS ORDERED: LEVOTHYROXINE SODIUM 100 MCG TAB PO SCH (10:23)
[2024-01-02] MEDS ORDERED: HYDROCORTISONE10 MG PO (10:40)
[2024-01-02] MEDS ORDERED: SIMETHICONE 125 MG TABLET CHEWABLE PO SCH (11:00)
[2024-01-02] MEDS ORDERED: KETOROLAC TROMETHAMINE 30 MG/ML VIAL IV SCH (14:00)
[2024-01-02] MEDS ORDERED: LO-DOSE ASPIRIN81 MG PO (14:53)
[2024-01-02] MEDS ORDERED: buprenorphine HCL 8 MG TAB.SUBL SL SCH (15:00)
[2024-01-02] MEDS ORDERED: ENOXAPARIN SODIUM 40 MG/0.4 ML SYR SUB-Q SCH (17:00)
[2024-01-02] MEDS ORDERED: SENNOSIDES/DOCUSATE 1 EA TAB PO SCH (21:00)
[2024-01-03] MEDS ORDERED: IBUPROFEN 600 MG TAB PO SCH (02:00)
[2024-01-03] MEDS ORDERED: LACTATED RINGER'S 1,000 ML IV SCH (05:00)
[2024-01-03 06:25] LABS: HEMATOCRIT 37.2 % (35.0-50.0); MCH 30.8 (27-36); MCHC 34.8 g/dl (30-36); MCV 88.5 fl (81-99); RBC 4.2 M/ul (4.3-5.7)
[2024-01-03] MEDS ORDERED: LEVOTHYROXINE SODIUM 100 MCG TAB PO SCH (07:00)
--- NOTE | 2024-01-03 07:33 | PR ---
[facility] [address] [facility] [place], [place] [address] Signed PP Progress Notes Datetime Report Generated by CPN: 01/03/2024 07:33 SUBJECTIVE: [id number] Pain: Within Normal Limits Nausea/Vomiting: Denies Flatus: Yes Bowel Movement: No Vital Signs: [id number] Vital Signs: Reviewed; Within Normal Limits Cardiovascular: Normal Respiratory: Normal Abdomen/Uterus: Normal Lochia: Normal Vulva/Perineum: Not Done Breasts: Not Done CVA Tenderness: Normal Extremities: Normal Incision: Normal Progress: Normal Exam Comments: Fundus firm U-2 nontender. Incision bandaged and dry IMPRESSION/PLAN/PROCEDURES: [id number] Impression: Normal Progression Plan: Continue Present Management Progress Notes: Pt seen and examined. Doing well. Ambulating, voiding, and tolerating full diet. Pain and lochia minimal. well. No fevers/chills. 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 Continue care Signing Physician: Rachel Donald DO Copies: ~ *Electronically Signed* 01/03/24 0728 RACHEL DONALD (RILEY) DO PATIENT NAME: RACHAEL MENDOZA PROGRESS NOTE DATE OF : 89 PHYSICIAN: RACHEL DONALD) DO RPT #: [id number] REPORT IS CONFIDENTIAL AND NOT TO BE RELEASED WITHOUT AUTHORIZATION
[2024-01-05] MEDS ORDERED: HYDROCORTISONE 10 MG TAB PO ONE ×2 (10:30→15:00)
== END 2024-01-05 12:30 | disposition home or self-care (01) | DRG 787 ==
LOC: FBC 01-02 05:01
PROVIDERS: ADMIT Obstetrics & Gynecology; ATTEND Obstetrics & Gynecology
PROC: 10D00Z1 Extraction of Products of Conception, Low, Open Approach (ICD-10-PCS; principal; 2024-01-03)
PROC: 0UQ90ZZ Repair Uterus, Open Approach (ICD-10-PCS; 2024-01-03)
PROC: 10907ZC Drainage of Amniotic Fluid, Therapeutic from Products of Conception, Via Natural or Artificial Opening (ICD-10-PCS; 2024-01-03)
DX: O99.284 Endocrine, nutritional and metabolic diseases complicating childbirth (principal); E27.1 Primary adrenocortical insufficiency; Z37.0 Single live birth; Z3A.39 39 weeks gestation of pregnancy; O34.211 Maternal care for low transverse scar from previous cesarean delivery; O34.593 Maternal care for other abnormalities of gravid uterus, third trimester; O69.81X0 Labor and delivery complicated by cord around neck, without compression, not applicable or unspecified; Z79.891 Long term (current) use of opiate analgesic
CPT/HCPCS: 01961; 36415; 80307; 85027; 85060; 86850; 86900; 86901; A9270; J0690; J1100; J1650; J1720; J1885; J2001; J2274; J2371; J2405; J2590; J2795; J3010; J7121